=== PATIENT | male | born 1965 | race African-American/Black ===

== ENCOUNTER 2024-03-30 20:41 | Emergency (ER) | payer OTHER ==
[~2024-03-30] VITALS: Ht 177.8 cm; Wt 134.0 kg
[2024-03-30 21:01] VITALS: O2SAT 100
[2024-03-30 22:31] LABS: HEMATOCRIT. 44.5 % (42.0-52.0); HEMOGLOBIN. 14.9 g/dL (14.0-18.0); LYMPHOCYTES % 38.2 % (20.0-50.0); MEAN CORPUSCULAR HGB CONC 33.5 g/dL (31.0-37.0); MEAN CORPUSCULAR VOLUME 92.8 fL (80.0-94.0); MEAN PLATELET VOLUME 9.1 fl (7.4-10.4); MONOCYTES % 9.2 % (2.0-8.0); NEUTROPHILS % 48.6 % (40.0-76.0); PLATELET 168 x1000/uL (130-400); RED CELL DISTRIBUTION WIDTH 14.8 % (11.6-14.6); WHITE BLOOD COUNT 4.7 x1000/uL (4.5-11.0)
[2024-03-30 22:51] LABS: CHLORIDE 107 mEq/L (98-107); SODIUM 139 mEq/L (136-145)
[2024-03-30 22:52] LABS: CARBON DIOXIDE 29 mEq/L (21-32)
[2024-03-30 22:57] LABS: CREATININE 1.3 mg/dL (0.6-1.3); GLUCOSE 149 mg/dL (70-105); UREA NITROGEN BLOOD 7 mg/dL (9-23)
[2024-03-31] MEDS: HYDRALAZINE 20MG/ML VIAL IV ONE (00:55)
[2024-03-31] MEDS ORDERED: AMLO5TAB88 MT (02:21)
[2024-03-31 02:35] VITALS: BP 160/98; PULSE 74; RESP 18; TEMP 36.89184; O2SAT 100
== END 2024-03-31 02:37 | disposition home or self-care (01) ==
LOC: ER 20:41
DX: I10 Essential (primary) hypertension (principal)
CPT/HCPCS: 80048; 85025; 36415; 93005; 99284; 96374; J0360; Z7610 ×2